=== PATIENT | female | born 1970 | race Caucasian/White ===

== ENCOUNTER 2016-10-11 23:48 | Emergency (ER) | payer BC | END 2016-10-12 00:24 | disposition home or self-care (01) | LOC: D.ER 23:48 | DX: K08.89 Other specified disorders of teeth and supporting structures (principal); E11.9 Type 2 diabetes mellitus without complications; Z79.4 Long term (current) use of insulin ==

== ENCOUNTER 2017-04-25 15:19 | Emergency (ER) | payer BC | END 2017-04-25 18:15 | disposition home or self-care (01) | LOC: D.ER 15:19 | DX: M54.16 Radiculopathy, lumbar region (principal); M79.605 Pain in left leg; E11.9 Type 2 diabetes mellitus without complications; Z79.4 Long term (current) use of insulin; Z96.41 Presence of insulin pump (external) (internal) ==

== ENCOUNTER 2017-06-15 17:46 | Emergency (ER) | payer BC | END 2017-06-15 20:37 | disposition home or self-care (01) | LOC: D.ER 17:46 | DX: M79.672 Pain in left foot (principal); M77.52 Other enthesopathy of left foot and ankle ==

== ENCOUNTER 2018-04-13 08:40 | Emergency (ER) | payer BC ==
[~2018-04-13] VITALS: Ht 162.6 cm; Wt 100.0 kg
[2018-04-13 08:42] VITALS: Ht 162.6 cm; Wt 100.0 kg
[2018-04-13] MEDS ORDERED: TIROSINT13 MCG (08:43)
[2018-04-13] MEDS ORDERED: INSULIN (08:44)
[2018-04-13] MEDS ORDERED: BP MEDICATION (08:44)
[2018-04-13] MEDS ORDERED: HYDROCHLOROTH12.5 M1 PO (08:44)
[2018-04-13 09:26] VITALS: BP 122/80
== END 2018-04-13 09:28 | disposition home or self-care (01) ==
LOC: D.ER 08:40
DX: J02.9 Acute pharyngitis, unspecified (principal); R11.0 Nausea

== ENCOUNTER 2018-09-26 14:38 | Emergency (ER) | payer BC ==
[~2018-09-26] VITALS: Ht 162.6 cm; Wt 103.6 kg
[~2018-09-26 14:38] MED LIST: BP MEDICATION; HYDROCHLOROTH12.5 M1 PO; INSULIN; TIROSINT13 MCG
[2018-09-26 15:04] VITALS: Ht 162.6 cm; Wt 103.6 kg
[2018-09-26] MEDS ORDERED: TOPAMAX50 MG PO (19:21)
[2018-09-26 19:32] VITALS: BP 132/79
== END 2018-09-26 19:32 | disposition home or self-care (01) ==
LOC: D.ER 14:38
DX: R51 Headache (principal); H53.8 Other visual disturbances

== ENCOUNTER 2019-07-18 06:07 | Observation (INO) | payer BC ==
[~2019-07-18] VITALS: Ht 162.6 cm; Wt 95.5 kg
[2019-07-18] VITALS (7 sets, daily range): BP systolic 98–106; BP diastolic 52–60; Ht 162.6 cm; Wt 95.5 kg
--- NOTE | ~2019-07-18 | HEMODYNAMI ---
PATIENT:GARRISON LIRA MEDICAL RECORD: [id number] : 68 [facility] D[id number] ADMISSION DATE: 07/18/19 Generatedon:07/18/201914:54 Patient name: GARRISON LIRA Patient #: [id number] SSN: : 1970 Date of study: 07/18/2019 Page: Of Hemodynamic Procedure Report Patient Data Patient Demographics Procedure consent was obtained First Name: GARRISON Gender: Female Last Name: PANKAJ : 1970 [facility] Initial: J Age: 49 year(s) Patient #: [id number] Race: Unknown Additional ID: [id number] Contact details [address]: [address] [place] [address] State: [place] City: [place] Zip code: [address] Past Medical History Allergies Allergen Reaction Date Comments Reported Penicillins 07/18/2019 Admission Admission Data Admission Date: 07/18/2019 Admission Time: 7:49 Room #: D.2114 Height (in.): 64 BSA: 2 (m2) Height (cm.): 162.56 BMI: 36.05 (kg/m2) Weight (lbs.): 210 Weight (kg.): 95.25 Lab Results Lab Result Date: 07/18/2019 Lab Result Time: 0:00 Biochemistry Name Units Result Min Max BUN mg/dl 31 --(----)-* 7 18 Creatinine mg/dl 2 --(----)-* 0.6 1.3 eGFR ml/min 28 *-(----)-- 90 120 NONAFRICAN CBC Name Units Result Min Max Hematocrit % 37.8 *-(----)-- 42 54 Hemoglobin g/dl 12.5 *-(----)-- 13.5 17.5 Procedure Procedure Types Cath Procedure Diagnostic Procedure [facility] w/Coronaries Sedation Charges Moderate Sedation up to 15 minutes PCI Procedure Coronary Stent Coronary Stent Initial Hemochron ACT Test Procedure Description Procedure Date Procedure Date: 07/18/2019 Procedure Start Time: 14:21 Procedure End Time: 14:47 Procedure Staff Name Function Cipriano Willingham MD Performing Physician Sarah Henry RT Monitor Dena Pollock RT Scrub Fay Colon RN Nurse Procedure Data Cath Procedure Fluoroscopy Diagnostic fluoroscopy Total fluoroscopy Time: 3.1 time: 3.1 min min Diagnostic fluoroscopy Total fluoroscopy dose: dose: [id number] mGy 391839 mGy Contrast Material Contrast Material Type Amount (ml) Isovue 300 125 Entry Location Entry Primary Successful Side Size Upsize Upsize Entry Closure Succes sful Closure Location (Fr) 1 (Fr) 2 (Fr) Remarks Device Remarks Femoral Right 5 Fr 6 Fr Exoseal artery Short Estimated blood loss: 10 ml Diagnostic catheters Device Type Used For End Catheter Placement MULTIPACK JL 4.0 5Fr Procedure catheter MULTIPACK 3DRC 5Fr Procedure catheter MULTIPACK Pigtail 5 Fr Procedure catheter Procedure Complications No complications Procedure Medications Medication Administration Route Dosage 0.9% NaCl I.V. 100 ml/hr Oxygen etCO2 Nasal cannula 2 l/min Lidocaine 2% added to field 20 Heparin Flush Bag added to field 2 bags (1000units/500ml NS) Versed I.V. 2 mg Fentanyl I.V. 100 mcg Heparin Bolus I.V. 5000 units Integrilin (Bolus I.V. 8.5 ml 2mg/ml) Integrilin (Bolus wasted 1.5 ml 2mg/ml) Plavix P.O. 600 mg Hemodynamics Rest BSA: 2 (m2) HGB: 12.5 (g/dl) O2 Consumption: Estimated: 203.36 (ml/min) O2 Consu mption indexed: Estimated:101.68 (ml/min/m) Heart Rate: 80 (bpm) Pressure Samples Time Site Value (mmHg) Purpose Heart Use Rate(bpm) 14:29 LV 88/9,13 Snapshot 84 14:29 AO 84/56(69) Pullback 77 Gradients Valve Time Site Site 2 Mean SEP/DFP Peak To Heart Use 1 (mmHg) (sec/min) Peak Rate (mmHg) (bpm) Aortic 14:29 LV AO 7 3 77 84/56(69) Calculations Valve P-P Mean Valve Index Valve Source Name Gradient Area Flow (cm2) Aortic 7 7 Snapshots Pre Cath Intra NCS Post Cath Vital Signs Time Heart Resp SPO2 etCO2 NIBP Rhythm Pain Sedation Rate (ipm) (%) (mmHg) (mmHg) Status Level (bpm) 14:11:05 80 19 99 0 105/61(78) NSR 0 (11) 10(A) , No pain 14:15:15 74 14 100 33 100/58(74) NSR 0 (11) 10(A) , No pain 14:19:21 78 11 97 35.2 99/63(78) NSR 0 (11) 10(A) , No pain 14:23:27 81 12 100 33 93/62(84) NSR 0 (11) 10(A) , No pain 14:27:28 82 14 99 38.2 99/65(89) NSR 0 (11) 10(A) , No pain 14:31:32 81 14 99 39 89/70(83) NSR 0 (11) 10(A) , No pain 14:35:38 73 14 99 39 99/53(74) NSR 0 (11) 10(A) , No pain 14:39:48 86 13 100 37.5 87/53(81) NSR 0 (11) 10(A) , No pain 14:43:49 80 9 100 31.5 97/58(80) NSR 0 (11) 10(A) , No pain Medications Time Medication Route Dose Verified Delivered Reason Notes Effectiveness by by 14:10:07 0.9% NaCl I.V. 100 Cipriano Fay used for ml/hr [facility] Danielito Colon procedure MD CASANOVA 14:10:17 Oxygen etCO2 2 Cipriano Fay used for Nasal l/min Maulik Isaiah procedure cannula MD CASANOVA 14:10:23 Lidocaine 2% added 20ml Cipriano Cota for local to vial [facility] anesthetic field MD MOORE 14:10:28 Heparin Flush added 2 Cipriano Cipriano used for Bag to bags [facility] procedure (1000units/500ml field MD OMORE NS) 14:21:49 Versed I.V. 2 mg Cipriano Zapataa for sedation [facility] Danielito Colon MD, RN 14:22:00 Fentanyl I.V. 100 Cipriano Fay for sedation mcg [facility] Danielito Colon MD, RN 14:33:04 Heparin Bolus I.V. 5000 Cipriano Zapataa for units [facility] Danielito hightower MD, RN 14:33:15 Integrilin I.V. 8.5 Cipriano Zapataa for (Bolus 2mg/ml) ml St Danielito oakes MD RN therapy 14:33:26 Integrilin wasted 1.5 Cipriano Aponte for (Bolus 2mg/ml) ml [facility] Danielito Colon antiplatelet RN therapy 14:33:31 Plavix P.O. 600 Cipriano Aponte for mg St Danielito Colon antiplatelet RN therapy Procedure Log Time Note 13:49:48 Informed consent obtained and on chart 13:50:19 Procedure Status Urgent Heart Cath (IP). 13:50:21 Time tracking: Regular hours (M-F 7:00 - 5:00) 13:50:24 Plan of Care:Hemodynamics will remain stable., Cardiac rhythm will remain stable., Comfort level will be maintained., Respiratory function will remain adequate., Patient/ family verbilizes understanding of procedure., Procedure tolerated without complication., Recovers from procedure without complications.. 13:50:29 H&P Date Dictated: 07/18/2019 ER History on chart.. 13:50:37 Patient allergic to Penicillins 13:51:19 Lab Result : BUN 31 mg/dl 13:51:19 Lab Result : Creatinine 2 mg/dl 13:51:19 Lab Result : eGFR NONAFRICAN 28 ml/min 13:51:19 Lab Result : Hemoglobin 12.5 g/dl 13:51:19 Lab Result : Hematocrit 37.8 % 13:53:45 Fay Colon RN sent for patient. Start room use. 14:09:59 Vital chart was started 14:10:07 0.9% NaCl 100 ml/hr I.V. was administered by Fay Colon RN; used for procedure; Verbal order read back and verified. 14:10:17 Oxygen 2 l/min etCO2 Nasal cannula was administered by Fay Colon RN; used for procedure; Verbal order read back and verified. 14:10:23 Lidocaine 2% 20ml vial added to field was administered by Cipriano Willingham MD; for local anesthetic; Verbal order read back and verified. 14:10:28 Heparin Flush Bag (1000units/500ml NS) 2 bags added to field was administered by Cipriano Willingham MD; used for procedure; Verbal order read back and verified. 14:11:03 Patient received from Med II to [facility] 2 Alert and oriented. Tansferred to table in Supine position. 14:11:04 Warm blankets applied, and kirstie hugger turned on for patient comfort. 14:11:05 Correct patient and procedure confirmed by team. 14:11:05 ECG and BP/O2 sat monitors applied to patient. 14:11:06 Baseline sample Acquired. 14:11:06 Full Disclosure recording started 14:11:09 Rhythm: sinus rhythm 14:11:11 Pre-procedure instructions explained to patient. 14:11:11 Pre-op teaching completed and patient verbalized understanding. 14:11:12 Family available with phone call 14:12:43 Is the patient allergic to Iodine/contrast media? No. 14:12:44 Patient diabetic? Yes. 14:12:46 If diabetic: On Metformin? No 14:12:51 INSULIN 14:12:56 Patient not . Patient has had tubal. 14:12:59 Previous problem with sedation/anesthesia? No ? 14:13:00 Snore? Yes 14:13:01 Sleep apnea? No 14:13:02 Deviated septum? No 14:13:02 Opens mouth fully? Yes 14:13:04 Sticks out tongue? Yes 14:13:05 Airway obstruction? No ? 14:13:12 Dentures? Yes PARTIAL 14:13:15 Modified Harshal's test Ulnar > 7 seconds. 14:13:18 Patient pain scale 0/10 ?. 14:13:28 IV patent on arrival in right antecubital with 0.9% NaCl at [facility]. 14:13:31 Lab results completed and on chart. 14:13:36 Right groin area was prepped with chlora-prep and draped in sterile fashion 14:13:36 Alarms reviewed by R. N. 14:13:37 Sharps counted by scrub and verified by R.N. 14:13:39 Use device set Femoral Dx 14:13:40 ACIST Syringe (76173) opened to sterile field. 14:13:40 Bag Decanter (2002S) opened to sterile field. 14:13:45 ACIST Hand Control (98042) opened to sterile field. 14:13:45 ACIST Manifold (78039) opened to sterile field. 14:13:48 Medline Cath Pack ([id number]) opened to sterile field. 14:13:49 DIAGNOSTIC Multipack 5Fr catheter set ([id number]) opened to sterile field. 14:13:49 Tegaderm 4 x 4 (1626W) opened to sterile field. 14:13:51 SHEATH 5FR [place] (OLZ180) opened to sterile field. 14:13:52 EMERALD Guide Wire (884-853) opened to sterile field. 14:15:48 Patient Weight : 210 lbs 14:15:51 Patient Height : 64 inches 14:17:33 Risk of Mortality: .1 14:17:36 Risk of blood transfusion: 3 14:17:40 Risk of KAREN: 4.8 14:20:37 --------ALL STOP TIME OUT------ 14:20:37 Final Timeout: patient, procedure, and site verified with staff and physician. All members of the team are in agreement. 14:20:39 Right groin site verified by team. 14:20:41 Fire Safety Assessment: A--An alcohol-based skin anteseptic being used preoperatively., C--Open oxygen or nitrous oxide is being used., D--An ESU, laser, or fiber-optic light is being used. 14:20:43 Physical assessment completed. ASA score P 2 - A patient with mild systemic disease as per Cipriano Willingham MD. 14:20:46 4) 15-29 Severley reduced kidney function. 14:20:50 Maximum allowable contrast dose (3.7 X eGFR X 0.75)78 ml. 14:20:53 Sedation plan: IV Moderate Sedation Medication:Versed, Fentanyl 14:21:03 Procedure started. 14:21:49 Versed 2 mg I.V. was administered by Fay Colon RN; for sedation; Verbal order read back and verified. 14:21:50 Local anesthetic to right femoral artery with Lidocaine 2% by Cipriano Willingham MD.INITIAL ACCESS ONLY 14:22:00 Fentanyl 100 mcg I.V. was administered by Fay Colon RN; for sedation; Verbal order read back and verified. 14:24:23 A 5 Fr sheath was inserted into the Right Femoral artery 14:24:29 A MULTIPACK JL 4.0 5Fr catheter was advanced over the wire and used for Procedure. 14:25:31 LCA angiography performed. 14:26:32 Catheter removed. 14:26:40 A MULTIPACK 3DRC 5Fr catheter was advanced over the wire and used for Procedure. 14:27:51 RCA angiography performed. 14:27:52 Catheter removed. 14:28:03 A MULTIPACK Pigtail 5 Fr catheter was advanced over the wire and used for Procedure. 14:28:27 LV gram done using VALDES 14::13 Injector settings: Ml/sec: 5, Volume: 15, 14:29:17 LV hemodynamics recorded. 14:29:31 EF : 55 % 14:29:33 Catheter removed. 14:30:11 SHEATH 6FR [place] (MZO689) opened to sterile field. 14:30:12 INFLATOR Merit BasixCompak (VG0909) opened to sterile field. 14:30:14 WHISPER 300cm guide wire ([id number]) opened to sterile field. 14:30:39 Proceeding to intervention. 14:31:17 Pre PCI Site: [place] Diag1 has 80% stenosis. 14:31:32 Sheath upsized to a 6 Fr Short. 14:31:37 GUIDE 6FR XBLAD 3.5 SH catheter ([id number]) opened to sterile field. 14:31:42 6 Fr XBLAD 3.5 SH guide catheter was inserted over the wire 14:33:04 Heparin Bolus 5000 units I.V. was administered by Fay Colon RN; for anticoagulation; Verbal order read back and verified. 14:33:15 Integrilin (Bolus 2mg/ml) 8.5 ml I.V. was administered by Fay Colon RN; for antiplatelet therapy; Verbal order read back and verified. 14:33:26 Integrilin (Bolus 2mg/ml) 1.5 ml wasted was administered by Fay Colon RN; for antiplatelet therapy; Verbal order read back and verified. 14:33:27 WHISPER 300 wire advanced. 14:33:31 Plavix 600 mg P.O. was administered by Fay Colon RN; for antiplatelet therapy; Verbal order read back and verified. 14:35:19 Wire advanced across lesion. 14:36:43 Place stent Inflation Number: 1 A HAIDER OTW 2.5 x 18 stent ([id number]) was prepped and advanced across the 1st Diag . The stent was deployed at 14 SHELBIE for 0:00 (min:sec) . 14:37:11 Stent catheter was removed intact over wire. 14:37:12 Wire removed. 14:37:12 Guide catheter removed. 14:37:18 EXOSEAL 6Fr (EX600) opened to sterile field. 14:37:32 Sheath removed intact; hemostasis achieved with Exoseal to the Right Femoral artery. 14:38:06 Procedure ended.(Physican Out) 14:39:19 Fluoroscopy time 03.10 minutes. 14:39:27 Fluoroscopy dose: 371823 mGy 14:39:27 Flurop Dose total: 336001 14:39:32 Dose Area Product 768 mGy/cm. 14:39:38 Contrast amount:Isovue 300 125ml. 14:39:41 Maximum allowable dose exceeded? Yes. 14:39:41 Sharps counted by scrub and verified by R.N. 14:39:46 Post-op/insertion site Right Femoral artery dressed using a 4 x 4 and Tegaderm. 14:39:55 Post-procedure physical assessment completed. ASA score P 2 - A patient with mild systemic disease as per Cipriano Willingham MD. 14:40:36 Post procedure rhythm: unchanged. 14:40:38 Estimated blood loss: 10 ml 14:40:55 ACT drawn and resulted at 231 seconds. (normal therapeutic range 180-240 seconds). 14:41:08 Post procedure instruction explained to patient.Patient verbalizes understanding. 14:41:08 Patient needs reinforcement of post procedure teaching. 14:42:16 Procedure type changed to Cath procedure, Diagnostic procedure, LHC, [facility] w/Coronaries, Sedation Charges, Moderate Sedation up to 15 minutes, PCI procedure, Coronary Stent, Coronary Stent Initial, Hemochron ACT Test 14:43:01 Procedure and supply charges have been captured, reviewed, submitted and are correct. 14:46:38 Procedure Complication : No complications 14:46:40 Vital chart was stopped 14:46:43 [facility] Findings: MVD- PCI performed (see procedure note) 14:46:51 Operative report dictated upon procedure completion. 14:46:52 See physician's report for complete and final results. 14:46:53 Report given to [facility]. 14:47:56 Patient transfered to [facility] with Bed. 14:47:57 Procedure ended. 14:47:57 Full Disclosure recording stopped 14:48:05 ACC-PCI Only Patient was given prescriptions, or instructed by Cipriano Willingham MD to start/continue the following medications upon discharge: Plavix 14:48:06 End room use (Document Last) 14:52:41 FEMSTOP Gold (Y77052) opened to sterile field. 14:52:48 Femstop placed over the right femoral artery at 145 mmHg. Hemostasis achieved. Intervention Summary Intervention Notes Time ActionType Lesion and Equipment Action# Pressure Duration Attributes Used 14:36:43 Place stent 1st Diag HAIDER OTW 2.5 1 14 00:00 x 18 stent ([id number]) Device Usage Item Name Manufacture Quantity Catalog Hospital Part Current Minim al Lot# / Number Charge Number Stock Stock Serial# Code ACIST Syringe Acist 1 81130 357216 040307 518465 20 (23667) Medical Systems Inc Bag Decanter Microtek 1 2001S 003594 20808 917096 5 (2001S) Medical Inc. ACIST Hand Acist 1 13839 300187 722062 921270 5 Control Medical (88649) Systems Inc ACIST Acist 1 74808 069911 084858 539922 5 Manifold Medical (65997) Systems Inc Medline Cath Medline 1 [id number] 244948 22919 061629 5 Pack ([id number]) DIAGNOSTIC Cardinal 1 DM1320 195364 18192 645106 30 Multipack 5Fr Health catheter set (FV9076) Tegaderm 4 x 3M 1 1626W 974916 838352 066294 5 4 (1626W) SHEATH 5FR Terumo 1 TML370 506054 104216 143533 5 [place] (EBV903) EMERALD Guide Cardinal 1 502-455 124003 099855 801756 5 Wire Health (502-455) MULTIPACK JL Cardinal 1 785999 5 4.0 5Fr Health catheter MULTIPACK Cardinal 1 102871 5 3DRC 5Fr Health catheter MULTIPACK Cardinal 1 024198 5 Pigtail 5 Fr Health catheter SHEATH 6FR Terumo 1 MFR735 582020 536899 654971 40 [place] (JQU262) INFLATOR Merit 1 LE0504 640603 007299 898567 15 [facility] Medical BasixCompak (IY7517) WHISPER 300cm Katz 1 [id number] 941216 937379 396098 5 guide wire Vascular (1053824AC) GUIDE 6FR Cardinal 1 [id number] 834602 214091 136185 3 XBLAD 3.5 SH Health catheter (15604239) HAIDER OTW 2.5 Medtronic 1 [id number] 117865 34614 401910 5 [id number] x 18 stent ([id number]) EXOSEAL 6Fr Cardinal 1 EX600 577098 996008 641874 10 (EX600) Health FEMSTOP Gold St Issa 1 P96538 625523 127492 912332 5 ([id number]) Signature Audit [place] Stage Time Signature Unsigned Intra-Procedure 07/18/2019 Sarah Henry 2:53:45 PM RT(R) Intra-Procedure 07/18/2019 Fay Colon 2:54:06 PM RN Intra-Procedure 07/18/2019 Cipriano Martinez 2:54:19 PM Danielito MOORE Signatures Performing Physician : Signature : Cipriano Willingham MD Date : Time : Monitor : Sarah Henry Signature : RT Date : Time : Nurse : Fay Colon RN Signature : Date : Time : [facility] [address] [place] [address]
[~2019-07-18 06:07] MED LIST changes: +TOPAMAX50 MG PO
[2019-07-18] MEDS ORDERED: PEPCID AC20 MG PO (06:15)
[2019-07-18] MEDS ORDERED: LEVEMIR IN100 UNITS/ SC (06:15)
[2019-07-18] MEDS ORDERED: PRINIVIL20 MG PO (06:16)
--- NOTE | 2019-07-18 06:56 | NUR ---
PT ON MONITOR. ALL SWABS AND LABS COLLECTED. MASK ON PATIENT. CALL LIGHT TO PATIENT.
[2019-07-18 06:57] LABS: BASOPHILS 0.1 % (0-2); EOSINOPHILS 3.8 % (0-7); HEMATOCRIT 37.8 % (36.0-48.0); HEMOGLOBIN 12.5 g/dL (12-16); IMMATURE GRANULOCYTES 0.3 % (0-5); LYMPHOCYTES 26.8 % (15-50); MCH 29.3 pg (26.0-34.0); MCHC 33.1 g/dL (31.0-37.0); MCV 88.5 fL (80.0-100.0); MEAN PLATELET VOLUME 10.9 fL (7.4-10.4); MONOCYTES 8.6 % (2-11); NEUTROPHILS 60.4 % (40-80); PLATELET COUNT 302 10x3/uL (130-400); RBC 4.27 10x6/uL (4.00-5.40); RDW 13.3 % (11.5-14.5); WBC 7.1 10x3/uL (4.8-10.8)
[2019-07-18 07:04] LABS: CALC OSMOLALITY 279 mosm/kg (275-300); CALCIUM 9.2 mg/dL (8.5-10.1); CARBON DIOXIDE 21.7 mmol/L (21.0-32.0); CHLORIDE - SERUM 102 mmol/L (98-107); GLUCOSE 217 mg/dL (74-106); POTASSIUM - SERUM 4.6 mmol/L (3.5-5.1); SODIUM 133 mmol/L (136-145); UREA NITROGEN 31 mg/dL (7-18); eGFR NON AFRICAN AMERICAN 28 mL/min (90-120)
--- NOTE | 2019-07-18 07:04 | NUR ---
ASSUMED CARE OF PT AT THIS TIME.
[2019-07-18 07:20] LABS: ALBUMIN 3.9 g/dL (3.4-5.0); ALKALINE PHOSPHATASE 102 U/L (30-120); ALT (SGPT) 25 U/L (10-68); BILIRUBIN - TOTAL 0.45 mg/dL (0.2-1.3); CKMB 0.3 U/L (0.0-3.6); CREATINE KINASE 43 UL (21-215); MAGNESIUM - SERUM 1.8 mg/dL (1.8-2.4); PRO BNP 43 pg/mL (0-125); THYROID STIMULATING HORMONE 2.98 uIU/mL (0.36-3.74); TROPONIN-I < 0.017 ng/mL (0.000-0.060)
[2019-07-18] MEDS ORDERED: SYNTHROID25 MCG PO (08:51)
[2019-07-18 08:52] LABS: CKMB 0.3 U/L (0.0-3.6); CREATINE KINASE 49 UL (21-215); TROPONIN-I < 0.017 ng/mL (0.000-0.060)
[2019-07-18 09:02] LABS: CHOL - HDL RATIO 2.3 ratio (2.3-4.1)
--- NOTE | 2019-07-18 14:03 | CN ---
PATIENT NAME:GARIRSON LIRA MEDICAL RECORD: [id number] : 68 LOCATION:. D.2114 ADMIT DATE: 07/18/19 ACCOUNT: [id number] CONSULTING PHYSICIAN: BHUMIKA MAYER MD REFERRING PHYSICIAN: JUNIOR PONCE MD DATE OF CONSULTATION: 07/18/2019 HISTORY OF PRESENT ILLNESS: A 49-year-old female with a strong family history of coronary artery disease. She has a history of diabetes mellitus, hypertension, dyslipidemia, currently on dietary modification, presenting with rapidly progressing angina with acute coronary syndrome, last couple of days noticed chest tightness, pressure with minimal exertion along with dyspnea, had this morning after awakening a rest symptomology. We are asked to see her concerning her cardiovascular status. PAST MEDICAL HISTORY: 1. History of diabetes mellitus. 2. Hypertension. 3. Hyperlipidemia. 4. Diabetes mellitus. 5. Hypothyroidism, on replacement. MEDICATIONS: Include Synthroid, unknown dose; insulin per scale; Pepcid 10 mg p.o. every day; HCTZ 12.5 every day; Topamax 50 q.i.d.; lisinopril 20 every day. ALLERGIES: PENICILLIN. SOCIAL HISTORY: Nonsmoker, quitting 5 years ago. Nondrinker. Still works procurement intern. She is able to take care of all her ADLs. No set exercise program. REVIEW OF SYSTEMS: The patient reports easy bruising but reports no swollen glands. The patient reports no fever, no night sweats, no significant weight gain, no significant weight loss. No significant exercise tolerance. The patient reports no dry eyes, no irritation, no vision change. Patient reports no difficulty hearing and no ear pain. Patient reports no frequent nose bleeds or nose and sinus problems. Patient reports on arm pain on exertion. No shortness of breath while lying down. No history of heart murmur. Patient reports no cough, no wheezing or coughing up blood. Patient reports no abdominal pain, no vomiting. Normal appetite. No diarrhea and not vomiting blood. No nausea and no constipation. Patient reports no incontinence. No difficulty urinating. No hematuria. No increased frequency. Patient reports no muscle aches. No weakness, no arthralgias, no back pain. No swelling of the extremities. Patient reports no abnormal mole, no jaundice, no rashes. Reports no loss of consciousness. No weakness and no numbness. No seizures, dizziness, or headaches. The patient reports no depression, no sleep disturbance, feeling safe in a relationship and no alcohol abuse. Patient reports on fatigue. Reports no runny nose or sinus pressure. No itching, no hives, and no frequent sneezing. PHYSICAL EXAMINATION: GENERAL: Pleasant female, in no acute distress, appears stated age. VITAL SIGNS: Blood pressure 106/52, pulse 80 and regular. HEENT: Normocephalic, atraumatic. HEART: Regular, II/ systolic ejection murmur. LUNGS: Good air excursion. CONSULT REPORT [id number] GARRISON LIRA ABDOMEN: Soft, nontender. EXTREMITIES: Pulses are preserved, 1-2+. There is no edema. NEUROLOGIC: Intact. IMPRESSION: Rapidly progressing angina, rest symptomology/acute coronary syndrome. PLAN: For angiography, intervention based on above. TRANSINT:[id number] Voice Confirmation ID: [id number] DOCUMENT ID: [id number] BHUMIKA MAYER MD at 1403 CC: [id number] DICTATION DATE: 07/18/19 0844 SYNTHETIC PLASTERER: 07/18/19 1329 ADM IN [facility] [address] [place] [address]
--- NOTE | 2019-07-18 19:15 | NUR ---
RECEIVED BEDSIDE REPORT. PATIENT IS ALERT AND ORIENTED, RESTING COMFORTABLY IN BED. RESPIRATIONS ARE EVEN AND UNLABORED. NO S/S OF DISTRESS. NO C/O PAIN. RIGHT GROIN NO SIGNS OF BLEEDING, BRUISING OR HEMATOMA. CALL LIGHT WITHIN REACH. WILL CPOC.
[2019-07-19 05:31] LABS: BASOPHILS 0.1 % (0-2); EOSINOPHILS 3.3 % (0-7); HEMATOCRIT 35.6 % (36.0-48.0); HEMOGLOBIN 11.5 g/dL (12-16); IMMATURE GRANULOCYTES 0.1 % (0-5); LYMPHOCYTES 20.8 % (15-50); MCH 28.8 pg (26.0-34.0); MCHC 32.3 g/dL (31.0-37.0); MEAN PLATELET VOLUME 11.1 fL (7.4-10.4); MONOCYTES 6.6 % (2-11); NEUTROPHILS 69.1 % (40-80); PLATELET COUNT 282 10x3/uL (130-400); RDW 13.3 % (11.5-14.5)
[2019-07-19 05:47] LABS: ANION GAP 15.8 mmol/L (8-16); CALCIUM 8.5 mg/dL (8.5-10.1); CARBON DIOXIDE 19.6 mmol/L (21.0-32.0); MAGNESIUM - SERUM 1.7 mg/dL (1.8-2.4); PHOSPHOROUS 3.2 mg/dL (2.5-4.9); POTASSIUM - SERUM 4.4 mmol/L (3.5-5.1)
[2019-07-19 05:48] LABS: CREATININE - SERUM 1.2 mg/dL (0.6-1.3)
--- NOTE | 2019-07-19 09:33 | OP ---
PATIENT NAME: GARRISON LIRA MEDICAL RECORD: [id number] :68 LOCATION:D.M2 D.2114 ADMISSION DATE:07/18/19 SURGEON: BHUMIKA MAYER MD DATE OF OPERATION: 07/18/2019 PROCEDURE: Left heart catheterization, selective coronary angiography, right femoral artery approach. CATHETERS: A 5-Croatian sheath, 5/4 left and right Mina, 5/4 pig. The procedure was well tolerated. The patient returned to rothman and sheath removed. ExoSeal device placed. FINDINGS: Left ventriculography in 30-degree VALDES view. Normal wall motion and normal systolic function. CORONARY ANATOMY: LEFT MAIN: Left main is free of disease. LAD: Free of disease. There is a large D1, easily 2.5 vessel with diffuse 80% stenosis typical diabetic vessel. CIRCUMFLEX: Somewhat codominant system, free of disease. RIGHT CORONARY ARTERY: Free of disease. IMPRESSION: Acute coronary syndrome secondary to a diagonal. PLAN: Intervention momentarily. DESCRIPTION OF PROCEDURE: A 5-Croatian sheath was exchanged for a 6-Croatian sheath. A XB LAD guide catheter provided good guide catheter support followed by 300 cm Whisper wire was placed across tightly occluded diagonal down this portion of vessel. Stent deployed was a 2.5 x 18 [place] drug-eluting stent up to 14 atmospheres for 45 seconds. Final angiography shows excellent resolution of 80% stenosis, no significant residual. AUDRA flow was 3 throughout the procedure. Sheath closed with ExoSeal device. Plavix was loaded in the lab. Statin started on the floor. TRANSINT:[id number] Voice Confirmation ID: [id number] DOCUMENT ID: [id number] BHUMIKA MAYER MD at 0933 CC: [id number] DICTATION DATE: 07/18/19 1457 DOOR CLOSER MECHANIC: 07/18/192003 ADM IN [facility] [address] [place] [address]
[2019-07-19 09:42] VITALS: BP 103/61
[2019-07-19 11:17] VITALS: BP 88/48
[2019-07-19] MEDS ORDERED: PLAVIX75 MG PO (13:58)
[2019-07-19] MEDS ORDERED: BAYER CHEWABLE81 MG PO (14:30)
[2019-07-19] MEDS ORDERED: LISINOPRIL10 MG PO (14:32)
--- NOTE | 2019-07-19 15:19 | NUR ---
IV AND TELEMETRY DCD. DC PLANS GIVEN. UNDERSTANDING VOICED. ESCORTED TO CAR BY W/C.
== END 2019-07-19 15:20 | disposition home or self-care (01) ==
LOC: D.ER 06:07 → D.M2 07:49 → OBSVTIME 08:14 → D.M2 07-19 15:20
PROVIDERS: Emergency Medicine; Family Medicine; Internal Medicine Interventional Cardiology; ADMIT Internal Medicine Nephrology; ATTEND Internal Medicine Nephrology
DX: I24.9 Acute ischemic heart disease, unspecified (principal); I20.9 Angina pectoris, unspecified; N17.9 Acute kidney failure, unspecified; E87.1 Hypo-osmolality and hyponatremia; E03.9 Hypothyroidism, unspecified; I10 Essential (primary) hypertension; E11.9 Type 2 diabetes mellitus without complications; Z98.84 Bariatric surgery status

== ENCOUNTER 2019-08-02 14:58 | Emergency (ER) | payer BC ==
[~2019-08-02] VITALS: Ht 162.6 cm; Wt 88.6 kg
[~2019-08-02 14:58] MED LIST changes: +BAYER CHEWABLE81 MG PO; +LEVEMIR IN100 UNITS/ SC; +LISINOPRIL10 MG PO; +PEPCID AC20 MG PO; +PLAVIX75 MG PO; +PRINIVIL20 MG PO; +SYNTHROID25 MCG PO
[2019-08-02 15:01] VITALS: Ht 162.6 cm; Wt 88.6 kg
[2019-08-02 15:20] LABS: BASOPHILS 0.3 % (0-2); EOSINOPHILS 4.4 % (0-7); HEMATOCRIT 33.4 % (36.0-48.0); HEMOGLOBIN 10.7 g/dL (12-16); IMMATURE GRANULOCYTES 0.1 % (0-5); LYMPHOCYTES 24.6 % (15-50); MCH 28.8 pg (26.0-34.0); MCV 89.8 fL (80.0-100.0); MEAN PLATELET VOLUME 10.4 fL (7.4-10.4); MONOCYTES 6.9 % (2-11); NEUTROPHILS 63.7 % (40-80); PLATELET COUNT 394 10x3/uL (130-400); RBC 3.72 10x6/uL (4.00-5.40); RDW 13.6 % (11.5-14.5); WBC 7.8 10x3/uL (4.8-10.8)
[2019-08-02 15:31] LABS: CALC OSMOLALITY 282 mosm/kg (275-300); CALCIUM 8.5 mg/dL (8.5-10.1); CARBON DIOXIDE 24.8 mmol/L (21.0-32.0); CHLORIDE - SERUM 104 mmol/L (98-107); CREATININE - SERUM 1.3 mg/dL (0.6-1.3); GLUCOSE 207 mg/dL (74-106); POTASSIUM - SERUM 3.8 mmol/L (3.5-5.1); SODIUM 137 mmol/L (136-145); UREA NITROGEN 21 mg/dL (7-18); eGFR NON AFRICAN AMERICAN 46 mL/min (90-120)
[2019-08-02 15:49] LABS: ALBUMIN 3.6 g/dL (3.4-5.0); ALKALINE PHOSPHATASE 117 U/L (30-120); ALT (SGPT) 26 U/L (10-68); BILIRUBIN - TOTAL 0.35 mg/dL (0.2-1.3); PRO BNP 72 pg/mL (0-125); PROTEIN - SERUM 7.9 g/dL (6.4-8.2)
[2019-08-02 15:54] LABS: TROPONIN-I < 0.017 ng/mL (0.000-0.060)
[2019-08-02 16:18] LABS: BILIRUBIN NEGATIVE (NEGATIVE); GLUCOSE 50 mg/dL (NEGATIVE); KETONE NEGATIVE (NEGATIVE); NITRITE NEGATIVE (NEGATIVE); UROBILINOGEN NORMAL (NORMAL)
[2019-08-02 16:19] LABS: RED CELLS - URINE 0-5 /hpf (0-5)
[2019-08-02 16:24] LABS: BACTERIA MANY /hpf (NEGATIVE)
[2019-08-02] MEDS ORDERED: MACROBID100 MG PO (16:54)
[2019-08-02] MEDS ORDERED: LEVOFLOXACIN500 MG PO (17:01)
[2019-08-02 17:07] VITALS: BP 107/58
== END 2019-08-02 17:17 | disposition home or self-care (01) ==
LOC: D.ER 14:58
PROVIDERS: Emergency Medicine
DX: N39.0 Urinary tract infection, site not specified (principal); R06.02 Shortness of breath; R53.1 Weakness; E07.9 Disorder of thyroid, unspecified